=== PATIENT | female | born 1985 | race African-American/Black ===

== ENCOUNTER 2016-10-23 20:37 | Emergency (ER) | payer OTHER ==
[2016-10-23] MEDS ORDERED: IPRATROPIUM/ALBUTEROL 0.5-2.5 MG/3 ML AMPUL NEB ONE (21:01)
--- NOTE | 2016-10-23 21:07 | ER Document Report ---
ED Respiratory Problem - General Chief Complaint: 3h Stated Complaint: DIFFICULTY BREATHING Mode of Arrival: Ambulatory Information source: Patient TRAVEL OUTSIDE OF THE [place] IN LAST 30 DAYS: No - HPI Patient complains to provider of: Short of breath, Other - WHEEZING Onset: This morning Duration: Continuous Initiating Event: Other - MUCH ATMOSPHERIC POLLEN PREVALENT Quality of pain: Other - SORENESS Severity: Moderate Context: Hx asthma, Short of Breath: Moderate Chest pain/discomfort: Center, Tightness Cough: Productive Sputum amount: Small Sputum color: Yellow Sputum consistency: Thick At home treatment: Bronchodilators Associated symptoms: Allergy/hay fever, Cough, Short of breath, Wheezing. denies: Ankle/leg swelling, Leg/calf/joint pain, Sweaty Worsened by: EXERTION Similar symptoms previously: Yes - NOT RECENT Recently seen / treated by doctor: Yes - [facility]RG[facility], TODAY - Related Data Allergies/Adverse Reactions: No Known Allergies Allergy (Unverified 01/23/11 00:30) Past Medical History - General Information source: Patient - Social History Smoking Status: Never Smoker Cigarette use (# per day): No Chew tobacco use (# tins/day): No Smoking Education Provided: No Frequency of alcohol use: None Drug Abuse: None Lives with: Spouse/Significant other Family History: Reviewed & Not Pertinent Patient has suicidal ideation: No Patient has homicidal ideation: No - Past Medical History Cardiac Medical History: Reports: None Pulmonary Medical History: Reports: Hx Asthma EENT Medical History: Reports: None Neurological Medical History: Reports: None Endocrine Medical History: Reports: None Renal/ Medical History: Reports: None. Denies: Hx Peritoneal Dialysis Malignancy Medical History: Reports: None GI Medical History: Reports: None Musculoskeltal Medical History: Reports None Psychiatric Medical History: Reports: None Surgical Hx: Negative Review of Systems - Review of Systems Constitutional: No symptoms reported. denies: Chills, Fever EENT: No symptoms reported Cardiovascular: No symptoms reported Respiratory: See HPI Gastrointestinal: No symptoms reported Genitourinary: No symptoms reported Female Genitourinary: - 6 WKS Musculoskeletal: Muscle pain - SORENESS DUE TO COUGHING Skin: No symptoms reported Neurological/Psychological: No symptoms reported Physical Exam - Vital signs Vitals: Temp Pulse Resp BP Pulse Ox 99.6 F 90 32 H 144/80 H 93 10/23/16 20:45 10/23/16 20:45 10/23/16 20:45 10/23/16 20:45 10/23/16 20:45 Interpretation: Hypertensive, Tachypneic. No: Tachycardic, Hypoxic - General General appearance: Appears well, Alert In distress: None - HEENT Head: Normocephalic Eyes: Normal Conjunctiva: Normal Ears: Normal Nasal: Normal Mouth/Lips: Normal Mucous membranes: Normal - Respiratory Respiratory status: No respiratory distress Breath sounds: Wheezing - EXPIRATORY, ALL LOBES - Cardiovascular Rhythm: Regular. No: Tachycardia Heart sounds: Normal auscultation Murmur: No - Abdominal Inspection: Normal Distension: No distension Bowel sounds: Hypoactive - Back Back: Normal - Extremities General upper extremity: Normal inspection General lower extremity: Normal inspection. No: Tender, Edema - Neurological Neuro grossly intact: Yes Cognition: Normal Orientation: AAOx4 - Psychological Associated symptoms: Normal affect, Normal mood - Skin Skin Temperature: Warm Skin Moisture: Dry Skin Color: Normal Skin Turgor: Elastic Course - Re-evaluation Re-evalutation: 10/23/16 23:24 Patient states she feels her breathing is somewhat improved. She is no longer tachypneic. O2 sats in the upper 90s on room air. Auscultation reveals a few scattered expiratory wheezes in all lung ruiz. Expiratory phase is not prolonged. 10/24/16 00:35 Patient states she feels still better. No wheezes heard on auscultation. - Vital Signs Vital signs: Temp Pulse Resp BP Pulse Ox 99.6 F 95 32 H 144/80 H 92 10/23/16 20:47 10/23/16 20:47 10/23/16 20:47 10/23/16 20:47 10/23/16 20:47 - Laboratory Result Diagrams: 10/23/16 21:30 10/23/16 22:54 Laboratory results interpreted by me: 10/23/16 10/23/16 21:30 22:54 WBC 12.7 H Seg Neutrophils % 81.5 H Lymphocytes % 8.9 L Absolute Neutrophils 10.3 H Sodium 135.4 L Glucose 124 H Discharge - Discharge Clinical Impression: Asthma exacerbation Qualifiers: Weeks of gestation: less than 8 weeks Qualified Code(s): Z3A.01 - Less than 8 weeks gestation of Condition: Stable Disposition: HOME, SELF-CARE Instructions: Inhaled Bronchodilators ([facility]) Additional Instructions: USE ALBUTEROL NEBULIZER DIRECTED, NEEDED FOR WHEEZING. USE CORTICOSTEROID INHALER DIRECTED. TAKE AZITHROMYCIN DIRECTED. AVOID SMOKE, DUST, AND FUMES. RETURN TO E.R. OR FOLLOW UP WITH YOUR PRIMARY CARE PROVIDER IF YOU GET WORSE, ANY TIME. Prescriptions: Nebulizer [Nebulizer Machine] 1 each MC ASDIR PRN #1 kit PRN Reason:
[2016-10-23] MEDS ORDERED: MAGNESIUM SULFATE PF/INJ 40 MEQ/10 ML SDV IV ONE (21:09)
[2016-10-23 21:41] LABS: ABSOLUTE EOSINOPHILS # (AUTO) 0.4 10^3/uL (0.0-0.6); ABSOLUTE LYMPHOCYTES (AUTO) 1.1 10^3/uL (0.5-4.7); ABSOLUTE MONOCYTES (AUTO) 0.8 10^3/uL (0.1-1.4); ABSOLUTE NEUT (AUTO) 10.3 10^3/uL (1.7-8.2); BASOPHILS % (AUTO) 0.4 % (0-2); EOSINOPHILS % (AUTO) 3.1 % (0-6); HEMOGLOBIN 12.6 g/dL (12.0-15.5); HGB HCT DIFFERENCE 0.8; LYMPHOCYTES % (AUTO) 8.9 % (13-45); MEAN CORPUSCULAR HEMOGLOBIN 32.4 pg (27.0-33.4); MEAN CORPUSCULAR HGB CONC 34.2 g/dL (32.0-36.0); MEAN CORPUSCULAR VOLUME 95 fl (80-97); MONOCYTES % (AUTO) 6.1 % (3-13); RED CELL DISTRIBUTION WIDTH 13.5 % (11.5-14.0); SEGMENTED NEUTROPHILS % (AUTO) 81.5 % (42-78); WHITE BLOOD COUNT 12.7 10^3/uL (4.0-10.5)
[2016-10-23] MEDS ORDERED: MAGNESIUM SULFATE/D5W 2 GM/200 ML RTUPB IV ONE (22:09)
[2016-10-23] MEDS ORDERED: MAGNESIUM SULFATE/D5W 100 ML IV SCH (22:15)
[2016-10-23] MEDS ORDERED: ALBUTEROL SULFATE 0.083% NEB 2.5 MG/3 ML AMPUL NEB ONE (23:17)
[2016-10-23 23:29] LABS: ALANINE AMINOTRANSFERASE 35 U/L (9-52); ALKALINE PHOSPHATASE 60 U/L (38-126); ANION GAP 9 (5-19); ASPARTATE AMINO TRANSFERASE 26 U/L (14-36); BILIRUBIN,DIRECT 0.3 mg/dL (0.0-0.4); BILIRUBIN,TOTAL 0.8 mg/dL (0.2-1.3); BLOOD UREA NITROGEN 9 mg/dL (7-20); CALCIUM 9.5 mg/dL (8.4-10.2); CARBON DIOXIDE 25 mmol/L (22-30); CHLORIDE 101 mmol/L (98-107); CREATININE RESULT 0.66 mg/dL (0.52-1.25); GLUCOSE 124 mg/dL (75-110); MAGNESIUM 2.2 mg/dL (1.6-2.3); POTASSIUM 4.6 mmol/L (3.6-5.0); SODIUM 135.4 mmol/L (137-145)
[2016-10-24 01:05] VITALS: BP 115/58
== END 2016-10-24 01:02 | disposition home or self-care (01) ==
LOC: ER 20:37
DX: O26.91 Pregnancy related conditions, unspecified, first trimester (principal); J45.901 Unspecified asthma with (acute) exacerbation; Z3A.01 Less than 8 weeks gestation of pregnancy
CPT/HCPCS: 94640; 99284; 96365; 96366; 36415; 83735; 85025; 80053; J3475

== ENCOUNTER 2016-11-26 05:59 | Day surgery (SDC) | payer OTHER ==
[2016-11-26 06:22] LABS: APPEARANCE,URINE SLIGHTLY-CLOUDY; BILIRUBIN,URINE NEGATIVE (NEGATIVE); GLUCOSE, URINE NEGATIVE (NEGATIVE); KETONES,URINE NEGATIVE (NEGATIVE); LEUKOCYTE ESTERASE,URINE NEGATIVE (NEGATIVE); NITRITE,URINE NEGATIVE (NEGATIVE); PROTEIN,URINE NEGATIVE (NEGATIVE); URINE SPECIFIC GRAVITY 1.028; UROBILINOGEN,URINE NEGATIVE mg/dL (<2.0)
[2016-11-26 06:44] LABS: HEMATOCRIT 38.1 % (36.0-47.0); HEMOGLOBIN 12.9 g/dL (12.0-15.5); HGB HCT DIFFERENCE 0.6; MEAN CORPUSCULAR HEMOGLOBIN 32.6 pg (27.0-33.4); MEAN CORPUSCULAR HGB CONC 33.8 g/dL (32.0-36.0); MEAN CORPUSCULAR VOLUME 96 fl (80-97); RED BLOOD COUNT 3.95 10^6/uL (3.72-5.28); RED CELL DISTRIBUTION WIDTH 13.6 % (11.5-14.0); WHITE BLOOD COUNT 6.7 10^3/uL (4.0-10.5)
[2016-11-26] MEDS ORDERED: PROPOFOL INJ 200 MG/20 ML VIAL IV ONE (06:51)
[2016-11-26] MEDS ORDERED: MORPHINE SULFATE 10 MG/ML INJ ONE (06:51)
[2016-11-26] MEDS ORDERED: MIDAZOLAM 2 MG/2 ML INJ ONE (06:51)
[2016-11-26] MEDS ORDERED: FENTANYL CITRATE INJ/PF 100 MCG/2 ML AMPUL ONE (06:51)
[2016-11-26] MEDS ORDERED: VASOPRESSIN INJ 20 UNIT/1 ML VIAL ONE (08:33)
[2016-11-26] MEDS ORDERED: OXYTOCIN 10 UNIT/ML VIAL ONE ×2 (08:34→08:35)
[2016-11-26] MEDS ORDERED: IBUPROFEN 800 MG TABLET ONE (09:16)
[2016-11-26] MEDS ORDERED: OXYCODONE-ACETAMINOPHEN 5-325 MG TABLET PO PRN ×2 (09:17)
[2016-11-26] MEDS ORDERED: RINGERS SOLUTION,LACTATED 1,000 ML IV PRN (09:17)
[2016-11-26] MEDS ORDERED: IBUPROFEN 800 MG TABLET PO PRN (09:18)
[2016-11-26] MEDS ORDERED: MORPHINE SULFATE 10 MG/ML INJ IM PRN (09:19)
[2016-11-26 09:53] VITALS: BP 119/72
[2016-11-26] MEDS ORDERED: DEXAMETHASONE SOD PHOSPHATE INJ 4 MG/1 ML VIAL ONE (14:08)
[2016-11-26] MEDS ORDERED: GLYCOPYRROLATE INJ 0.4 MG/2 ML VIAL ONE (14:08)
[2016-11-26] MEDS ORDERED: ONDANSETRON HCL INJ/PF 4 MG/2 ML SDV ONE (14:08)
[2016-11-26] MEDS ORDERED: KETOROLAC TROMETHAMINE 60 MG/2 ML SDV ONE (14:08)
[2016-11-26] MEDS ORDERED: LIDOCAINE 2% INJ-PF (20 MG/ML) 10 ML AMPUL ONE (14:08)
--- NOTE | 2017-01-05 10:29 | OPERATIVE REPORT E ---
Operative Report NAME: SY JIMENEZ : 1985 AGE: 31Y DATE OF SURGERY: 11/26/2016 ROOM: PREOPERATIVE DIAGNOSIS: Missed . POSTOPERATIVE DIAGNOSIS: Missed . PROCEDURE: Suction dilatation and curettage. SURGEON: Andry Mccloud D.O. WOODWORKING MACHINE OFFBEARER: None. ANESTHESIA: General endotracheal anesthesia. COMPLICATIONS: None. ESTIMATED BLOOD LOSS: 50 mL. PATHOLOGY: Products of conception. FINDINGS: 1. Uterine sounded to 8 cm. 2. Moderate amount of products of conception removed. PROCEDURE: The patient was taken to the operating room where she was placed in a dorsal spine position upon the operating room table. She was then administered her general endotracheal anesthesia which was found to be adequate. She was placed in a dorsal lithotomy position with Dustin stirrups. She was then prepped and draped in normal sterile fashion. An open-sided speculum was then placed inside the patient's vagina. The cervix was easily visualized and grasped on the anterior lip with a single-tooth tenaculum. The uterus was then sounded to 8 cm. The cervix was then dilated to a 24 [place] Island[place] using a Hegar dilator. Using #8 curved curette, a suction dilatation was performed which removed moderate amounts of products of conception. Following this, the single-tooth tenaculum was then removed from the patient's cervix with excellent hemostasis noted. At this point in time, all instruments were removed from the patient's vagina and procedure was terminated. All sponge, lap, and needle counts were correct x2. The patient tolerated the procedure well. The patient was taken to the recovery room in stable condition. DICTATING PHYSICIAN: Andry Mccloud DO [id number] PHY#: [id number] ID: [id number] JOB#: [id number] ACCT: [id number] cc:Andry Mccloud D.O. >
== END 2016-11-26 10:10 | disposition home or self-care (01) ==
LOC: OROUT 05:59
PROVIDERS: ATTEND Obstetrics & Gynecology
PROC: 10D17ZZ Extraction of Products of Conception, Retained, Via Natural or Artificial Opening (ICD-10-PCS; principal; 2016-11-26 08:00)
DX: O02.1 Missed abortion (principal); J45.909 Unspecified asthma, uncomplicated; Z87.891 Personal history of nicotine dependence; Z79.899 Other long term (current) drug therapy; Z79.51 Long term (current) use of inhaled steroids; Z79.1 Long term (current) use of non-steroidal anti-inflammatories (NSAID)
CPT/HCPCS: 86900; 86901; 36415; 86850; 85027; 81001; 88305 ×2; 59820; J2250; J1100; J1885; J3010; J2590; J2405; J2704; J3490; 1965; J2270

== ENCOUNTER 2017-07-01 15:36 | Outpatient (CLI) | payer MEDICAID ==
[2017-07-01] MEDS ORDERED: PENICILLIN G POTASSIUM 5,000,000 UNIT in DEXTROSE 5%-WATER 100 ML IV ONE (16:04)
[2017-07-01] MEDS ORDERED: RINGERS SOLUTION,LACTATED 1,000 ML IV PRN (16:04)
[2017-07-01] MEDS ORDERED: RINGERS SOLUTION,LACTATED 1,000 ML IV ONE (16:04)
[2017-07-01] MEDS ORDERED: MAGNESIUM SULFATE 20 GM/500 ML RTUINJ IV PRN (16:05)
[2017-07-01] MEDS ORDERED: BETAMET ACET/BETAMET NA INJ 6 MG/1 ML IM PRN (16:05)
[2017-07-01] MEDS ORDERED: MAGNESIUM SULFATE 4 GM/100 ML RTUPB IV ONE (16:10)
[2017-07-01] MEDS ORDERED: BETAMET ACET/BETAMET NA INJ 6 MG/1 ML ONE (16:11)
[2017-07-01] MEDS ORDERED: PENICILLIN G-K 5 MILLION UNIT VIAL ONE (16:12)
[2017-07-01] MEDS ORDERED: MAGNESIUM SULFATE/D5W 1 GM/100 ML RTUPB IV SCH (16:15)
[2017-07-01 16:41] LABS: APPEARANCE,URINE CLEAR; BILIRUBIN,URINE NEGATIVE (NEGATIVE); COLOR,URINE STRAW; GLUCOSE, URINE NEGATIVE (NEGATIVE); KETONES,URINE NEGATIVE (NEGATIVE); LEUKOCYTE ESTERASE,URINE NEGATIVE (NEGATIVE); NITRITE,URINE NEGATIVE (NEGATIVE); PROTEIN,URINE NEGATIVE (NEGATIVE); URINE SPECIFIC GRAVITY 1.004; UROBILINOGEN,URINE NEGATIVE mg/dL (<2.0)
[2017-07-01 17:06] LABS: BACTERIA (WET MOUNT) 3+ BACTERIA SEEN; T.VAGINALIS (WET MOUNT) NO TRICHOMONAS SEEN; WBCS (WET MOUNT) FEW WBCS SEEN; YEAST (WET MOUNT) NO YEAST SEEN
[2017-07-01 17:09] LABS: URINE AMPHETAMINES SCREEN NEGATIVE; URINE BARBITURATES SCREEN NEGATIVE; URINE BENZODIAZEPINES SCREEN NEGATIVE; URINE COCAINE SCREEN NEGATIVE; URINE MARIJUANA (THC) SCREEN NEGATIVE; URINE METHADONE SCREEN NEGATIVE; URINE PHENCYCLIDINE SCREEN NEGATIVE
[2017-07-01 18:37] LABS: CHLAM PCR NOT DETECTED (NOT DETECT); GON PCR NOT DETECTED (NOT DETECT)
[2017-07-01] MEDS ORDERED: PENICILLIN G POTASSIUM 2,500,000 UNIT in DEXTROSE 5%-WATER 50 ML IV SCH (20:04)
== END 2017-07-01 18:56 | disposition short-term general hospital (02) ==
LOC: LC 15:36
PROVIDERS: ATTEND Obstetrics & Gynecology Gynecology
PROC: 4A1HXCZ Monitoring of Products of Conception, Cardiac Rate, External Approach (ICD-10-PCS; principal; 2017-07-01)
DX: O60.02 Preterm labor without delivery, second trimester (principal); Z3A.26 26 weeks gestation of pregnancy
CPT/HCPCS: 96372; 87210; 81001; 87081; 80307; 87491; 87591; 59899; J3475; J2540; J0702

== ENCOUNTER 2017-09-14 03:47 | Outpatient (CLI) | payer MEDICAID ==
--- NOTE | 2017-09-14 04:05 | Admission Physical ---
Datetime Report Generated by CPN: 09/14/2017 04:05 CURRENT ADMISSION Chief Complaint: Sent from OB Office for Evaluation and Treatment - Please Specify Indication for Induction: Not Applicable Admit Impression : , Intrauterine Admit Impression- Other: CL 1.2 cm with funneling Admit Plan: Initiate Labor Protocol ALLERGIES Medication Allergies: No Known Allergies (07/01/2017) OBSTETRICAL HISTORY EDC: 10/07/2017 00:00 PHYSICAL EXAM General: Normal HEENT: Normal Neurologic: Normal Thyroid: Deferred Heart: Normal Lungs: Normal Breast: Deferred Back: Normal Abdomen: Normal Genitourinary Exam: Deferred Extremities: Normal DTRs: Normal Physical Exam Comments: Gravid uterus Vital Signs: Reviewed; Within Normal Limits FETUS A Monitoring: External US FHR- Baseline: 150 Admit Comment: [id number]--50 wks EGA Cervical length 1.2 cm with funneling MFM patient with anomalies-club feet, polydactyly, 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 Platelets 139 on initial ob visit Obesity-no diabetic testing at this time Plan: Initiate transfer to [facility] notified Antibiotics started Betamethasone given Magnesium Sulfate for neuro-protection records available INFORMED CONSENT Assignment: Mandeep Franco MD Signature: with User ID: [email or web address] : with User ID: [email or web address] : I personally evaluated and examined the patient in conjunction with the MLP and agree with the assessment, treatment plan and disposition.
[2017-09-14 04:29] LABS: APPEARANCE,URINE CLOUDY; BILIRUBIN,URINE NEGATIVE (NEGATIVE); COLOR,URINE YELLOW; GLUCOSE, URINE NEGATIVE (NEGATIVE); KETONES,URINE TRACE mg/dL (NEGATIVE); LEUKOCYTE ESTERASE,URINE SMALL (NEGATIVE); NITRITE,URINE NEGATIVE (NEGATIVE); PROTEIN,URINE 100 mg/dL (NEGATIVE); URINE SPECIFIC GRAVITY 1.004; UROBILINOGEN,URINE NEGATIVE mg/dL (<2.0)
[2017-09-14 04:40] LABS: URINE AMPHETAMINES SCREEN NEGATIVE; URINE BARBITURATES SCREEN NEGATIVE; URINE BENZODIAZEPINES SCREEN NEGATIVE; URINE COCAINE SCREEN NEGATIVE; URINE MARIJUANA (THC) SCREEN NEGATIVE; URINE METHADONE SCREEN NEGATIVE; URINE PHENCYCLIDINE SCREEN NEGATIVE
== END 2017-09-14 05:52 | disposition short-term general hospital (02) ==
LOC: LC 03:47
PROVIDERS: ATTEND Obstetrics & Gynecology
PROC: 4A1HXCZ Monitoring of Products of Conception, Cardiac Rate, External Approach (ICD-10-PCS; principal; 2017-09-14)
DX: O42.913 Preterm premature rupture of membranes, unspecified as to length of time between rupture and onset of labor, third trimester (principal); O35.9XX0 Maternal care for (suspected) fetal abnormality and damage, unspecified, not applicable or unspecified; O99.213 Obesity complicating pregnancy, third trimester; Z3A.36 36 weeks gestation of pregnancy
CPT/HCPCS: 59025; 80307; 81001

== ENCOUNTER 2017-11-11 11:15 | Day surgery (SDC) | payer MEDICAID ==
[2017-11-10 12:44] LABS: HEMATOCRIT 44.2 % (36.0-47.0); MEAN CORPUSCULAR HEMOGLOBIN 31.3 pg (27.0-33.4); MEAN CORPUSCULAR HGB CONC 33.9 g/dL (32.0-36.0); MEAN CORPUSCULAR VOLUME 92 fl (80-97); PLATELET COUNT 168 10^3/uL (150-450); RED BLOOD COUNT 4.78 10^6/uL (3.72-5.28); RED CELL DISTRIBUTION WIDTH 13.3 % (11.5-14.0); WHITE BLOOD COUNT 4.7 10^3/uL (4.0-10.5)
[2017-11-10 12:51] LABS: APPEARANCE,URINE CLEAR; BILIRUBIN,URINE NEGATIVE (NEGATIVE); COLOR,URINE YELLOW; GLUCOSE, URINE NEGATIVE (NEGATIVE); KETONES,URINE NEGATIVE (NEGATIVE); LEUKOCYTE ESTERASE,URINE SMALL (NEGATIVE); NITRITE,URINE NEGATIVE (NEGATIVE); PROTEIN,URINE NEGATIVE (NEGATIVE); UROBILINOGEN,URINE NEGATIVE mg/dL (<2.0)
[~2017-11-11 11:15] MED LIST: DEXAMETHASONE SOD PHOSPHATE INJ 4 MG/1 ML VIAL ONE; GLYCOPYRROLATE INJ 0.4 MG/2 ML VIAL ONE; LACTATED RINGERS 1000 ML IV PRN; LIDOCAINE 0.5% INJ-PF (5 MG/ML) 50 ML SDV SUBCUT PRN; NEOSTIGMINE METHYLSULFATE 10 MG/10 ML VIAL ONE; ONDANSETRON HCL INJ/PF 4 MG/2 ML SDV ONE; ROCURONIUM BROMIDE INJ 50 MG/5 ML VIAL IV ONE; SUCCINYLCHOLINE CHLORIDE INJ 200 MG/10 ML VIAL ONE
[2017-11-11] MEDS ORDERED: MIDAZOLAM 2 MG/2 ML INJ ONE (12:40)
[2017-11-11] MEDS ORDERED: KETOROLAC TROMETHAMINE 60 MG/2 ML SDV ONE (12:40)
[2017-11-11] MEDS ORDERED: FENTANYL CITRATE INJ/PF 250 MCG/5 ML AMPULE ONE (12:40)
[2017-11-11] MEDS ORDERED: PROPOFOL INJ 200 MG/20 ML VIAL IV ONE (12:40)
[2017-11-11] MEDS ORDERED: PROMETHAZINE HCL INJ 25 MG/1 ML VIAL IV PRN ×2 (13:30)
[2017-11-11] MEDS ORDERED: OXYCODONE-ACETAMINOPHEN 5-325 MG TABLET PO PRN ×2 (13:30)
[2017-11-11] MEDS ORDERED: MORPHINE SULFATE 10 MG/ML INJ IV PRN (13:30)
[2017-11-11] MEDS ORDERED: FENTANYL CITRATE INJ/PF 100 MCG/2 ML AMPUL IV PRN ×3 (13:30)
[2017-11-11] MEDS ORDERED: MEPERIDINE HCL/PF INJ 25 MG/1 ML DISP.SYRIN IV PRN (13:30)
[2017-11-11] MEDS ORDERED: DIPHENHYDRAMINE HCL 50 MG/ML VIAL IV PRN (13:30)
--- NOTE | 2017-11-11 14:19 | OPERATIVE REPORT E ---
Operative Report NAME: SY JIMENEZ : 1985 AGE: 32Y DATE OF SURGERY: 11/11/2017 ROOM: PREOPERATIVE DIAGNOSIS: UNDESIRED FERTILITY. POSTOPERATIVE DIAGNOSIS: UNDESIRED FERTILITY. OPERATION: Laparoscopic tubal cauterization. SURGEON: EFREN TRAN M.D. ANESTHESIA: Dr Dai with general. FINDINGS: Normal uterus, tubes and ovaries. COMPLICATIONS: None. ESTIMATED BLOOD LOSS: 20 mL. SPECIMENS REMOVED: None. PROCEDURE: Patient was taken to the operating room, prepared and draped in normal sterile fashion, in dorsolithotomy position. Under sterile conditions, in and out cath was performed of approximately 50 mL of clear urine. A Hulka clamp was then placed through the cervix for uterine manipulation, without difficulty. The gloves were changed, and attention was then returned to the upper portion of the case, where an umbilical skin incision was made with a scalpel, and the attempt to enter the peritoneal cavity with a Veress needle was not successful. Therefore, a cutdown was performed and the peritoneal cavity was entered sharply with Mayos and Kochers as stability. A 5-mm trocar was then placed through this incision. The abdomen was inflated with approximately 2 liters of CO2 gas. Under direct visualization, a 5-mm trocar was placed in the left lower quadrant. The patient was then placed in steep Trendelenburg and the bowel was swept away with a blunt probe. The Kleppinger was then introduced, and the left fallopian tube was burnt with greater than 3 cm of cautery. This was repeated on the right, without difficulty. Once this was completed, the Kleppinger was removed, and the trochar was removed under direct visualization in the left lower quadrant. The patient was flattened, and the abdomen was deflated through the umbilical incision, after removing the camera. The skin was closed at both sites with 4-0 Vicryl. Patient tolerated procedure well. Sponge, lap and needle counts were correct x2, and the Hulka was removed from the cervix at the end of the procedure, before coming to the PACU. DICTATING PHYSICIAN: EFREN TRAN M.D. [id number] PHY#: [id number] ID: [id number] JOB#: [id number] ACCT: [id number] cc:EFREN TRAN M.D. > MTDD
[2017-11-11] MEDS ORDERED: OXYCODONE-ACETAMINOPHEN 5-325 MG TABLET PO ONE (15:07)
[2017-11-11 16:05] VITALS: BP 140/87
== END 2017-11-11 16:20 | disposition home or self-care (01) ==
LOC: OROUT 11:15
PROVIDERS: ATTEND Obstetrics & Gynecology
DX: Z30.2 Encounter for sterilization (principal); F17.210 Nicotine dependence, cigarettes, uncomplicated; J45.909 Unspecified asthma, uncomplicated; I10 Essential (primary) hypertension; E66.9 Obesity, unspecified; Z68.36 Body mass index [BMI] 36.0-36.9, adult; Z79.51 Long term (current) use of inhaled steroids
CPT/HCPCS: 36415; 85027; 81005; 81025; 58670; J2250; J3490 ×2; J1100; J1885; J3010; J0330; J2405; J2704; 851